=== PATIENT | female | born 1965 | race African-American/Black ===

== ENCOUNTER → 2021-03-05 | Day surgery (SDC) | payer BC ==
[~2021-03-05] VITALS: Ht 149.9 cm; Wt 59.0 kg
[~2021-03-05] MED LIST: ASA81BEC PO; ASPIRIN EC325 M1 PO; GLYBURIDE MICRON6 MG PO; LANTUS SOL100 UNIT/1 SUBQ; LOSARTAN-HCTZ1 EACH PO; LOVASTATIN40 MG PO; METFORMIN HCL500 MG PO; PERCOCET 7.5-31 EAC1 PO; TRULICITY1.5 MG/0.5 SUBQ
[2021-03-05 12:20] VITALS: BP 135/58
[2021-03-05 14:45] VITALS: BP 135/58
--- NOTE | 2021-03-05 15:33 | EKG ---
[address] [address] ELECTROCARDIOGRAM REPORT Name: MILES POSADAS Room #: REG [facility]#: [id number] Admission: 03/05/21 Attend Phys: Rd Ramires MD Discharge: Date of : 63 Report #: [id number] [facility] Test Date: 2021-03-05 Test Time: 12:30:57 Pat Name: MILES POSADAS Department: Room: Gender: Electrical Tryout Person: NICOLAS : 1965 Requested By: Rd Ramires Order Number: [id number] : Yannick Art Measurements Intervals [place] Rate: 72 P: 76 KS: 180 QRS: 2 QRSD: 89 T: 59 QT: 393 QTc: 431 Interpretive Statements Sinus rhythm No previous ECG available for comparison Electronically Signed On 03-05-2021 15:33:40 CDT by Yannick Art [email or web address] <ELECTRONICALLY SIGNED> By: Yannick Art MD, [facility] 03/05/21 1533 1230 1230 Yannick Art MD, FACC /EPI
--- NOTE | 2021-03-05 15:33 | NUR ---
ORDERS RECEIVED TO ISSUE A ROLLER WALKER. PT STILL UNDER ANESTHESIA EFFECTS, UNABLE TO FIT TO PT'S HEIGHT. ADJUSTED WALKER TO A 4'11 HEIGHT AND INSTRUCTED RN IN HOW TO FIT THE WALKER TO THE PT ONCE AWAKE.
--- NOTE | 2021-03-17 07:54 | O ---
[facility] [place] [address] OPERATIVE REPORT Name: MILES POSADAS Room #: REG [facility].#: [id number] Admission: 03/05/21 Attend Phys: Rd Ramires MD Discharge: Date of : 63 Report #: [id number] THIS REPORT FOR: cc: MARQUIS WOODRUFF MD Physician not on staff Rd Ramires MD ~ DATE OF SERVICE: 03/05/2021 PREOPERATIVE DIAGNOSES: 1. Left subtalar arthritis. 2. Left peroneal tendinitis. POSTOPERATIVE DIAGNOSES: 1. Left subtalar arthritis. 2. Left peroneal tendinitis. PROCEDURES: 1. Left subtalar arthrodesis. 2. Left peroneal tendon debridement. SURGEON: Rd Ramires MD [employer]SEM[employer]ER: None. ANESTHESIA: General. ESTIMATED BLOOD LOSS: Minimal. DRAINS: No drains. TOURNIQUET TIME: 40 minutes. DESCRIPTION OF PROCEDURE: The patient was brought to the operating room where she was placed under general anesthesia. Once under adequate general anesthesia, her left lower extremity was prepped and draped in a sterile manner. The extremity was elevated, exsanguinated, and tourniquet placed at 300 mmHg. A lateral incision including the patient's previous scar was then made extending along the peroneal tendons and the subtalar joint. Sinus tarsi was then entered sharply with a 15 blade and exposure was made of the subtalar joint. The subtalar joint posterior facet was then prepared utilizing osteotomes, curettes and a bur to good bleeding subchondral bone. Utilizing fluoroscopy for guidance, two 6.5 mm headless screws from the [employer] set were placed from the dorsum of the talus across the subtalar joint. Excellent fixation and alignment was achieved once complete. Demineralized bone matrix allograft had been placed into the joint prior to placement of the screws. We then proceeded to explore the peroneal tendons. Peroneal retinaculum was opened exposing the peroneus [address] [address] OPERATIVE REPORT Name: KATHARINAMILES Room #: REG [facility] M.R.#: [id number] Admission: 03/05/21 Attend Phys: Rd Ramires MD Discharge: Date of : 63 Report #: [id number] longus and brevis tendons. There was a low lying muscle belly on the peroneus brevis tendon, which was debrided off of it. There were no tendon tears noted in the peroneus longus or brevis; however. These were examined from posterior to the fibula to distal to the peroneal tubercle. Once complete, the wound was irrigated copiously and closed with 2-0 Ethibond in the retinacular tissue, 2-0 Vicryl in subcutaneous tissues and lester for the skin. The wound was dressed with Xeroform, 4 x 4's, and a sterile soft compressive dressing and a short leg cast was placed. Tourniquet was let down at 40 minutes. Toes are pink and warm. Good capillary refill. There were no complications from the procedure. The patient tolerated the procedure well and went to the recovery room without incident. <ELECTRONICALLY SIGNED> By: Rd Ramires MD 03/17/[address] Ramires MD /nt
== END | disposition home or self-care (01) ==
LOC: OR 10:50
PROVIDERS: ATTEND Orthopaedic Surgery Foot and Ankle Surgery
DX: M13.872 Other specified arthritis, left ankle and foot (principal); M76.72 Peroneal tendinitis, left leg; M66.372 Spontaneous rupture of flexor tendons, left ankle and foot; M95.8 Other specified acquired deformities of musculoskeletal system; I10 Essential (primary) hypertension; E78.00 Pure hypercholesterolemia, unspecified; E11.9 Type 2 diabetes mellitus without complications; F17.210 Nicotine dependence, cigarettes, uncomplicated; Z79.4 Long term (current) use of insulin; Z98.890 Other specified postprocedural states; Z79.899 Other long term (current) drug therapy
CPT/HCPCS: 50010; 50101; 50386; 50951; 51014; 51412; 51740; 53341; 56524; 57091; 57179; 58885; 59015; 59016; 62110; 62900; 70005